=== PATIENT | male | born 1940 | race Caucasian/White ===

== ENCOUNTER → 2021-11-11 08:45 | Outpatient (BNVA) | payer MEDICARE, SELFPAY | PROVIDERS: Referring Provider Nurse Practitioner Family; Visit Provider Specialist | DX: G62.89 Other specified polyneuropathies (principal) | CPT/HCPCS: 95909; 95911 ==

== ENCOUNTER 2022-08-01 07:23 | Outpatient (CLI) | payer MEDICARE, SELFPAY ==
[2022-08-01 07:43] VITALS: BMI 27.1
--- NOTE | 2022-08-01 07:45 | NMCV_ITS ---
NM phillip perf SPECT r/s* [id number] Lexa Zapata Age: 82 Gender: M : 1940 Exam Date: 08/01/2022 08:20 Ordering Phys: Carl Crawley Technologist: RAO Cantrell Exam Location: [facility] Indications: ATHEROSCLEROTIC HEART DISEASE, EXERCISE INTOLLERENCE STRESS TEST Please see separate stress test report in [facility] for full findings IMAGE PROTOCOL Rest/Stress 1 Lexiscan Day Radiopharmaceutical Dose (mCi) Administration Site Administered by Rest: Tc-99m 10.8 IV RAO Benton Sestamibi Stress:Tc-99m 32.7 IV RAO Benton Sestamibi Rest: 01-Aug-2022 60 Discovery 630 Stress: 01-Aug-2022 30 Discovery 630 0.4mg Lexiscan. Images obtained in supine and prone position. SPECT RESULTS Technical Quality: Excellent Raw Data Analysis: Normal Image Corrections: No attenuation or motion correction applied Summed Stress Score: 4 Summed Rest Score: 5 Summed Difference Score: 2 PERFUSION FINDINGS Moderate area of minimally decreased tracer uptake was noted involving the basal and mid inferolateral, basal inferior and mid inferoseptal regions. Some reversibility was noted in the basal inferior and mid inferoseptal regions. FUNCTIONAL RESULTS (calculated via Gated SPECT) Stress Image LV EF (%): 76 Stress EDV (mL):88 TID: 0.79 Stress ESV (mL):21 FUNCTIONAL FINDINGS: Segmental wall motion analysis revealing no gross wall motion abnormalities IMPRESSIONS 1. Myocardial perfusion imaging revealing areas of persistent minimally decreased tracer uptake in the inferior, inferolateral and inferoseptal regions with some reversibility suggesting myocardial scarring in the distribution of the right coronary /left circumflex artery with a very small area of betzaida- infarct ischemia mostly in the right coronary artery territory. However because of the inconsistency, the reliability is questionable. 2. Normal LV ejection fraction 76%. 3. LV wall motion analysis revealing no gross wall motion abnormalities. 4. Normal LV volume No similar previous studies are available for comparison Dr Jimi Salinas MD [facility] (Electronically Signed) Final Date: 01 August 2022 16:37 S
--- NOTE | 2022-08-01 07:45 | ECG_ITS ---
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 Interpretive Statements NAME OF STUDY: LEXISCAN SESTAMIBI STRESS TEST INDICATION: CAD, PROCEDURE: At the baseline, the EKG revealed sinus rhythm with a second-degree type I AV block. The baseline heart was 47 bpm with a blood pressue of 125/78 mm of Hg Lexiscan was infused over a period of 20 seconds. A total of 0.4 milligrams of Lexiscan was infused. The stress phase was continued for a total of 5 minutes. Heart rate at the end of the stress phase was 52 bpm with a blood pressure 115/70 mm of Hg. The EKG at the peak infusion revealed no significant changes. Sestamibi was injected 20 seconds after the Lexiscan infusion. Heart rate at the end of the recovery phase was 58 bpm with a blood pressure of 132/75 mm of Hg. CONCLUSION: 1. No significant EKG changes with the LexiScan infusion 2. No LexiScan induced chest pain or cardiac arrhythmia 3. Normal blood pressure and heart rate response 4. Sestamibi/sestamibi perfusion scan pending; see separate report. Electronically Signed On 08-03-2022 23:16:14 CDT by Jimi Salinas M.D. [id number]
[2022-08-01] MEDS: regadenoson 0.4 Mg/5 ml Syringe IVP (08:55)
[2022-08-01 09:09] VITALS: BP 132/75; PULSE 59
== END 2022-08-01 07:24 | disposition home or self-care (01) ==
LOC: CDL 07:26
PROVIDERS: PCP Family Medicine; Visit Provider Family Medicine
DX: I25.118 Atherosclerotic heart disease of native coronary artery with other forms of angina pectoris (principal); R68.89 Other general symptoms and signs
CPT/HCPCS: 36415; 78452; 93017; 96374; A9500; J2785

== ENCOUNTER → 2022-08-12 13:10 | Outpatient (BNVA) | payer MEDICARE, SELFPAY | PROVIDERS: PCP Family Medicine; Referring Provider Registered Nurse; Visit Provider Orthopaedic Surgery | DX: S52.122A Displaced fracture of head of left radius, initial encounter for closed fracture (principal); W18.30XA Fall on same level, unspecified, initial encounter | CPT/HCPCS: 24650; 73080; 99213 ==

== ENCOUNTER → 2022-08-25 13:49 | Outpatient (BNVA) | payer MEDICARE, SELFPAY | PROVIDERS: PCP Family Medicine; Visit Provider Orthopaedic Surgery | DX: X58.XXXA Exposure to other specified factors, initial encounter (principal); S52.122A Displaced fracture of head of left radius, initial encounter for closed fracture | CPT/HCPCS: 73080; 99213 ==

== ENCOUNTER → 2022-09-03 12:50 | Outpatient (BNVA) | payer MEDICARE, SELFPAY | PROVIDERS: PCP Family Medicine; Visit Provider Internal Medicine | DX: R07.9 Chest pain, unspecified (principal); I25.118 Atherosclerotic heart disease of native coronary artery with other forms of angina pectoris; I10 Essential (primary) hypertension; R06.09 Other forms of dyspnea; R94.31 Abnormal electrocardiogram [ECG] [EKG] | CPT/HCPCS: 93005; 99204 ==

== ENCOUNTER → 2022-09-16 13:02 | Outpatient (BNVA) | payer MEDICARE, SELFPAY | PROVIDERS: PCP Family Medicine; Visit Provider Orthopaedic Surgery | DX: I25.118 Atherosclerotic heart disease of native coronary artery with other forms of angina pectoris (principal); I10 Essential (primary) hypertension; R06.09 Other forms of dyspnea; I44.30 Unspecified atrioventricular block; X58.XXXA Exposure to other specified factors, initial encounter; S52.122A Displaced fracture of head of left radius, initial encounter for closed fracture | CPT/HCPCS: 73080; 99024; 99214 ==

== ENCOUNTER 2022-09-19 14:50 | Outpatient (CLI) | payer MEDICARE, SELFPAY ==
--- NOTE | 2022-09-19 15:15 | USCV_ITS ---
Lexa Zapata Age: 82 Gender: M : 1940 Exam Date: 09/19/2022 15:46 Ordering Phys: Adin Morales M.D ([email or web address]) Technologist: CT Exam [place] [facility] [place] Indication: sob BP: 145 / 77 HR: 73 Rhythm: Sinus Technical Quality: Adequate MEASUREMENTS (Male / Female) Normal Values 2D ECHO LV Diastolic Diameter PLAX 4.3 cm 4.2 - 5.9 / 3.9 - 5.3 cm LV Systolic Diameter PLAX 3.2 cm LV Chamber Size 4.9 cm IVS Diastolic Thickness 1.1 cm 0.6 - 1.0 / 0.6 - 0.9 cm IVS Systolic Thickness 1.0 cm LVPW Diastolic Thickness 0.9 cm 0.6 - 1.0 / 0.6 - 0.9 cm LVPW Systolic Thickness 1.8 cm RV Chamber Size 4.4 cm LVOT Diameter 2.2 cm LV Ejection Fraction 2D Teich 49.8 % LV Ejection Fraction MOD 2C 50.0 % LV Ejection Fraction 2C AL 51.8 % LA Diameter 4.5 cm LA Width 4.3 cm LA Height 5.5 cm RA Width 3.8 cm RA Height 4.5 cm Aorta at Sinotubular Diameter 3.1 cm M-MODE Aortic Annulus Diameter 4.2 cm LA Ao Ratio MM 1.0 MV E Point Septal Separation 0.6 cm DOPPLER AV Peak Velocity 145.0 cm/s LVOT Peak Velocity 114.0 cm/s AV Area Cont Eq vti 4.0 cm squared AV Area Cont Eq pk 2.9 cm squared MV Peak Velocity 108.0 cm/s MV Area PHT 4.9 cm squared Mitral E to A Ratio 2.6 MV E' Velocity 60.5 cm/s Mitral E to MV E' Ratio 9.3 Mitral E to LV E' Lateral Ratio 8.3 Mitral E to LV E' Septal Ratio 10.6 Right Atrial Pressure 3.0 mmHg PV Peak Velocity 96.0 cm/s FINDINGS Left Ventricle Left ventricle is normal in size. LV systolic function is normal with EF of 50 to 55%. No regional wall motion abnormalities are seen. Right Ventricle Normal in size and function Right Atrium Normal in size Left Atrium Dilated Mitral Valve Mitral valve is thickened. Mild mitral regurgitation. Aortic Valve Aortic valve is thickened. No significant aortic stenosis. Mild aortic regurgitation. Tricuspid Valve Mild tricuspid regurgitation. Pulmonic Valve Not well-visualized. Pericardium Normal Aorta Normal in size IVC Appears to be normal CONCLUSIONS LV systolic function is normal with EF of 50 to 55%. Left atrium is dilated Mild mitral regurgitation Mild aortic regurgitation Mild tricuspid regurgitation No comparison studies are available. Adin Morales MD (Electronically Signed) Final Date: 27 September 2022 15:01 S
== END 2022-09-19 14:51 | disposition home or self-care (01) ==
LOC: RAD 14:57
PROVIDERS: PCP Family Medicine; Visit Provider Internal Medicine
DX: I08.3 Combined rheumatic disorders of mitral, aortic and tricuspid valves (principal); R06.02 Shortness of breath
CPT/HCPCS: 93306

== ENCOUNTER → 2022-10-10 11:03 | Outpatient (BNVA) | payer MEDICARE, SELFPAY | PROVIDERS: PCP Family Medicine; Visit Provider Nurse Practitioner Family | DX: I44.1 Atrioventricular block, second degree (principal); I44.30 Unspecified atrioventricular block | CPT/HCPCS: 80048; 85025; 85610; 99214 ==

== ENCOUNTER → 2022-11-06 12:55 | Outpatient (BNVA) | payer MEDICARE, SELFPAY | PROVIDERS: PCP Family Medicine; Visit Provider Internal Medicine | DX: I10 Essential (primary) hypertension (principal); R06.09 Other forms of dyspnea; I25.118 Atherosclerotic heart disease of native coronary artery with other forms of angina pectoris; I44.30 Unspecified atrioventricular block; Z79.01 Long term (current) use of anticoagulants | CPT/HCPCS: 99214 ==

== ENCOUNTER → 2022-11-26 10:43 | Outpatient (BNVA) | payer MEDICARE, SELFPAY | PROVIDERS: PCP Family Medicine; Visit Provider Internal Medicine Cardiovascular Disease | DX: R07.9 Chest pain, unspecified (principal); I44.1 Atrioventricular block, second degree; I48.91 Unspecified atrial fibrillation | CPT/HCPCS: 93005; 99215 ==

== ENCOUNTER 2022-11-28 14:14 | Observation (INO) | payer MEDICARE, SELFPAY ==
[2022-11-28 07:30] VITALS: BP 148/83; PULSE 66; RESP 16; TEMP 36.8; O2SAT 97; BMI 26.6
--- NOTE | 2022-11-28 08:11 | ECG_ITS ---
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 Measurements Intervals [place] Rate: 54 P: 0 IA: 0 QRS: -5 QRSD: 108 T: 13 QT: 431 QTc: 409 Interpretive Statements SINUS BRADYCARDIA WITH 2ND DEGREE AV BLOCK, 2:1 OR MOBITZ TYPE I POSSIBLE RIGHT VENTRICULAR CONDUCTION DELAY [RSR (QR) IN V1/V2] CRITICAL TEST RESULT Compared to ECG 11/26/2022 10:57:54 Atrial fibrillation no longer present Electronically Signed On 11-28-2022 18:20:42 CDT by Jimi Salinas M.D. [id number]
[2022-11-28 08:17] LABS: Basophils # 0.1 10^3/uL (0.0-0.1); Basophils % 0.9 %; Eosinophils # 0.3 10^3/uL (0.0-0.8); Hematocrit 46.7 % (37-53); Lymphocytes # 2.3 10^3/uL (0.8-4.8); Lymphocytes % 34.9 %; Mean Corpuscular HGB Conc 34.3 g/dL (30-55); Mean Corpuscular Hemoglobin 32.8 pg (27-33); Mean Corpuscular Volume 95.7 fl (82-101); Mean Platelet Volume 10.4 fL (7.4-10.4); Monocytes # 0.5 10^3/uL (0.2-0.9); Monocytes % 7.9 %; Neutrophils % 51.1 %; Nucleated Red Blood Cells % 0 %; Platelet Count 160 10^3/cmm (157-399); Red Blood Count 4.88 10^6/uL (3.85-5.65); Red Cell Distribution Width 12.8 % (12.1-15.1); White Blood Count 6.45 10^3/uL (3.29-11.43)
[2022-11-28 08:32] LABS: INR 0.95 (0.8-1.2)
--- NOTE | 2022-11-28 08:32 | XR_ITS ---
WS: [id number] EXAMINATION: XR chest 2V* [id number] REASON FOR EXAM: Pre op COMPARISON: None available. ORDER DATE: 11/28/2022 8:36 AM FINDINGS: The lungs are clear of infiltrate. There is atherosclerotic aortic change.. There are no significan t pleural effusions . No significant abnormalities are noted in the spine or remainder of the bony th orax. IMPRESSION: NO ACUTE PULMONARY CHANGE.
[2022-11-28 08:41] LABS: Anion Gap 12.3 (5-19); Blood Urea Nitrogen 19 mg/dL (8-23); Carbon Dioxide 29 mmol/L (22-29); Chloride 105 mmol/L (98-107); Glucose 95 mg/dL (65-115); Osmolality Calculated 296 mOsm/kg (285-295); Potassium 4.3 mmol/L (3.5-5.1); Sodium 142 mmol/L (136-145)
--- NOTE | 2022-11-28 09:47 | PC.NURSE ---
cpru nurse received pt from laboratory technician post [facility]. multiple stents placed. pt alert and oriented x3. tr band on right wrist with distal pulse palpable. no bruising or hematoma noted. pt educated on restrictions of right wrist, pt and family acknowledged understanding. pt and family will be re-educated throughout recovery. pt placed on monitor and will be monitored per protocol. plan is to recovery in cpru for approx 30 mins and then transfer to [facility].
--- NOTE | 2022-11-28 11:48 | W.PM.OPSUD ---
Surgery/Procedure H&P Update DATE OF PROCEDURE: November 28, 2022 DATE H&P PERFORMED: 11/26/22 H&P UPDATE INFORMATION: I have reviewed H&P completed within last 30 days, I have examined patient prior to procedure and No changes to prior documentation PREOP DIAGNOSIS: Symptomatic bradycardia; tachy / maria d arrhythmias PRIMARY INDICATION FOR PROCEDURE: Intermittent atrial fibrillation with rapid ventricular rate and high degree AV blocks PLANNED PROCEDURE: Operation Date: 11/28/22 08:30 Proposed Procedures p Pacemaker Insertion [id number],I44.1(Not Applicable) - Jimi Salinas MD. transvenous permanent dual-chamber pacemaker PATIENT REASSESSED PRIOR TO SEDATION, WITH NO CHANGE NOTED: Yes PHYSICAL EXAM: alert, oriented x 3, clear to auscultation bilaterally and regular rate & rhythm AIRWAY EVAL/ANESTHESIA PLAN: normal airway, see other exam findings, ASA III, Monitored Anesthesia, Local Anesthesia, Risks, benefits & alternatives of sedation and/or procedure discussed and Patient agrees to continue as planned
--- NOTE | 2022-11-28 13:54 | P.OP_ITS ---
Operative Report Date of procedure: November 28, 2022 Pre-op diagnosis: Preop Diagnosis Symptomatic bradycardia; tachy / maria d arrhythmias Procedure: LOCATION: Cardiac catheterization lab PREOPERATIVE DIAGNOSES: Intermittent high degree AV block, intermittent atrial fibrillation with rapid ventricular rate, tachy maria d arrhythmias. POSTOPERATIVE DIAGNOSES: Same. COMPLICATIONS: None. ESTIMATED BLOOD LOSS: Around 5 milliliters. BRIEF HISTORY: 82-year-old white male with a history of atherosclerotic heart disease, high blood pressure, dyslipidemia, presents with complaints of palpitation, shortness of breath, dizziness and chest discomfort. The event monitor showed evidence of atrial fibrillation with rapid ventricular rate with a heart rate in the 160s and episodes of second-degree heart block with a heart rate in the 30s. For further management of his condition, a permanent pacer implantation was requested. A dual chamber permanent pacemaker implantation was recommended for AV synchrony and symptom relief The procedure was explained to the patient and his family in detail with the risks and benefits. The risks of bleeding, hematoma, vascular injury, infection, pneumothorax, myocardial perforation and other concomitant complications were explained in detail, which the patient understood well and consented to proceed. PROCEDURE DESCRIPTION: The patient was brought to the Cardiac Catheterization Lab. The left and the right side of the neck and the subclavian area were cleaned and draped in a sterile fashion. 1% Xylocaine was used as the local an esthetic agent. Left subclavian venogram was performed by injecting 20 milliliters of Omnipaque through the left antecubital vein. A left subclavian venous access was obtained using a micropuncture needle system, under venographic guidance. . A two-inch long incision was made 2.0 centimeters below the midclavicular region. By sharp and blunt dissection, a pacemaker pocket was made. A second venous access was obtained with the double barelling. Over the first guidewire, a 7-Ethiopian venous sheath with dilator was advanced. The venous dilator and the guidewire were taken out. A screw-in ventricular lead was advanced through the venous sheath and was positioned towards the right ventricle. Under fluoroscopic guidance, the ventricular lead was positioned toward the right ventricular apex. Good pacing and sensing thresholds were obtained. The lead was secured to the endocardium by advancing the helix. The stability of the lead was tested by gentle twisting movements and also by asking the patient to take some deep breaths and cough. The venous sheath was peeled off, at this time. The lead was secured to the pectoralis fascia, by suturing with 1-0 Surgilon. Over the second guidewire, another 7-Ethiopian venous sheath with dilator was advanced. The dilator and the guidewire were taken out. Under fluoroscopic guidance, an atrial lead (Medtronic), was advanced and positioned toward the right atrium. The lead was positioned in the right atrial appendage. Good pacing and sensing thresholds were obtained. The lead was secured to the endocardium by advancing the helix. Stability of the lead was tested by gentle twisting movements and also by asking the patient to take some deep breaths and cough. The venous sheath was peeled off, at this time. The lead was secured to the pectoralis fascia by suturing with 0-Surgilon. The pacemaker pocket was copiously irrigated with vancomycin solution. Complete hemostasis was achieved. Sponge counts were confirmed. The leads were attached to a Medtronic generator. The leads were positioned behind the generator and the generator was attached to the pectoralis fascia by suturing with 0-Surgilon. The pocket was closed in layers. Skin was approximated using 4-0 Vicryl. IMPLANTED DEVICES: ATRIAL LEAD: Model number: 5076/52 Serial number: [id number] Make: Medtronic VENTRICULAR LEAD: Model number: 5076/58 Serial number: [id number] Make: Medtronic GENERATOR Brand: Singac XT DR MRI [place] Model number: W1 DR 01 Serial number: [id number] Make: Medtronic IMPLANTATION DATA: With the pacing system analyzer, the R wave sensing was 10.0 millivolts with a lead impedance of 950 and a pacing threshold was 0.4 volts at 0.4 milliseconds. In the atrium, the sensing was two-point millivolts with a nestor d impedance of 608 ohms and a pacing threshold was 0.4 volts at 0.4 milliseconds. Through the device, the R-wave sensing was 8.5 millivolts with a lead impedance of 912 and a pacing threshold was 0.5 volts at 0.4 milliseconds. The atrial sensing was 3.6 millivolts with a lead impedance of 587 ohms and a pacing threshold of 0.5 volts at 0.4 milliseconds. The pacemaker was set for /DDDR mode with upper rate of 130 and a lower rate of 60. A pressure dressing was applied over the pacemaker site. The patient was transferred to the Medical Floor in stable condition. A chest x-ray was ordered to confirm the lead position and also to rule out any pneumothorax.
[2022-11-28 14:00] VITALS: PULSE 73
[2022-11-28] MEDS: sodium chloride 0.9% 1,000 ML 75 ML IV (15:02)
[2022-11-28 16:00] VITALS: BP 125/64; PULSE 76; RESP 18; TEMP 36.4; O2SAT 94
[2022-11-28] MEDS: famotidine 20 mg Tablet 40 MG PO (17:22)
[2022-11-28 20:00] VITALS: BP 103/68; PULSE 73; RESP 16; TEMP 36.4; O2SAT 96
[2022-11-28] MEDS: ceFAZolin 2,000 MG in sodium chloride 0.9% (plus) 50 ML 100 MG IV (21:02)
[2022-11-28] MEDS: latanoprost 0.005% Op Soln 2.5 mL Btl 1 DROP EYE-BOTH (21:13)
[2022-11-28 22:00] VITALS: PULSE 79
[2022-11-28 23:53] VITALS: BP 130/80; PULSE 74; RESP 16; TEMP 36.5; O2SAT 96
[2022-11-29] MEDS: sodium chloride 0.9% 1,000 ML 75 ML IV (02:18)
[2022-11-29 04:00] VITALS: BP 152/71; PULSE 70; RESP 15; TEMP 36.6; O2SAT 95
[2022-11-29] MEDS: ceFAZolin 2,000 MG in sodium chloride 0.9% (plus) 50 ML 100 MG IV ×2 (04:21→11:21)
[2022-11-29 05:48] VITALS: PULSE 77
[2022-11-29 07:33] VITALS: BP 134/72; PULSE 70; RESP 18; TEMP 36.6; O2SAT 96
--- NOTE | 2022-11-29 08:40 | ECG_ITS ---
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 Measurements Intervals [place] Rate: 82 P: 67 IL: 178 QRS: -78 QRSD: 186 T: 85 QT: 451 QTc: 529 Interpretive Statements ELECTRONIC VENTRICULAR PACEMAKER Compared to ECG 11/28/2022 08:19:08 Sinus bradycardia no longer present Electronically Signed On 11-29-2022 14:45:16 CDT by Adin Morales M.D. [id number]
[2022-11-29] MEDS: meloxicam 7.5 mg tablet PO (09:04)
[2022-11-29] MEDS: famotidine 20 mg Tablet 40 MG PO (09:04)
[2022-11-29] MEDS: lisinopril 20 mg Tablet 40 MG PO (09:04)
--- NOTE | 2022-11-29 10:16 | P.DS_ITS ---
Discharge Providers Date of Admission: 11/28/22 14:14 Date of Discharge: November 29, 2022 Attending Provider at Admission: Jimi Salinas MD Attending Provider at Discharge: Adin Morales MD Primary Care Provider: Carl Crawley Reason for Visit Reason for Visit: I44.1 Brief History: 82-year-old man with past medical history of CAD, atrial fibrillation was found to have sick sinus syndrome. Plan for pacemaker placement. Hospital Course Hospital Course Patient underwent successful placement of dual chamber pacemaker with Dr. Salians yesterday. He is doing well. No complications. he will be discharged home with close cardiology follow-up Physical Exam Narrative: GENERAL: Patient is alert, awake and oriented x3. [] NECK: No jugular vein distension. [] HEENT: No cyanosis. No icterus. No pallor. [] HEART: Regular S1 and S2. No murmur, rub or gallop. [] LUNGS: Clear to auscultate bilaterally. [] CENTRAL NERVOUS SYSTEM: Grossly nonfocal. 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 OFFICER request for service Routine Exams 11/28/22 07:30 Completed XR chest 2V* [id number] Routine Exams 11/28/22 08:32 Completed Laboratory Results WBC 6.45 10^3/uL (3.29-11.43) 11/28/22 08:00 RBC 4.88 10^6/uL (3.85-5.65) 11/28/22 08:00 Hgb 16.00 g/dL (11.27-16.99) 11/28/22 08:00 Hct 46.7 % (37-53) 11/28/22 08:00 MCV 95.7 fl (82-101) 11/28/22 08:00 MCH 32.8 pg (27-33) 11/28/22 08:00 MCHC 34.3 g/dL (30-55) 11/28/22 08:00 RDW 12.8 % (12.1-15.1) 11/28/22 08:00 Plt Count 160 10^3/cmm (157-399) 11/28/22 08:00 MPV 10.4 fL (7.4-10.4) 11/28/22 08:00 Neut % (Auto) 51.1 % 11/28/22 08:00 Lymph % (Auto) 34.9 % 11/28/22 08:00 [place] % (Auto) 7.9 % 11/28/22 08:00 Eos % (Auto) 5.0 % 11/28/22 08:00 Baso % (Auto) 0.9 % 11/28/22 08:00 Neut # (Auto) 3.30 10^3/uL (1.8-7.7) 11/28/22 08:00 Lymph # (Auto) 2.3 10^3/uL (0.8-4.8) 11/28/22 08:00 [place] # (Auto) 0.5 10^3/uL (0.2-0.9) 11/28/22 08:00 Eos # (Auto) 0.3 10^3/uL (0.0-0.8) 11/28/22 08:00 Baso # (Auto) 0.1 10^3/uL (0.0-0.1) 11/28/22 08:00 Nucleated RBC % (auto) 0 % 11/28/22 08:00 Nucleated RBCs # 0.0 /100WBC 11/28/22 08:00 PT 13.00 SECONDS (12.1-14.9) 11/28/22 08:00 INR 0.95 (0.8-1.2) 11/28/22 08:00 Sodium 142 mmol/L (136-145) 11/28/22 08:00 Potassium 4.3 mmol/L (3.5-5.1) 11/28/22 08:00 Chloride 105 mmol/L (98-107) 11/28/22 08:00 Carbon Dioxide 29 mmol/L (22-29) 11/28/22 08:00 Anion Gap 12.3 (5-19) 11/28/22 08:00 BUN 19 mg/dL (8-23) 11/28/22 08:00 Creatinine 1.0 mg/dL (0.7-1.2) 11/28/22 08:00 GFR Calculation Not Reportable 11/28/22 08:00 Glucose 95 mg/dL (65-115) 11/28/22 08:00 Calculated Osmolality 296 mOsm/kg (285-295) H 11/28/22 08:00 Calcium 9.0 mg/dL (8.5-10.5) 11/28/22 08:00 Vitals Last Vital Signs Temp 97.8 F 11/29/22 07:33 Pulse 70 11/29/22 07:33 Resp 18 11/29/22 07:33 BP 134/72 11/29/22 07:33 Pulse Ox 96 11/29/22 07:33 O2 Del Method Room Air 11/29/22 04:00 Discharge Plan Discharge Patient Disposition: Home Condition: Stable Prescriptions: Continued famotidine 40 mg tablet 40 mg PO BID meloxicam 7.5 mg tablet 7.5 mg PO DAILY amitriptyline 10 mg tablet 10 mg PO DAILY latanoprost 0.005 % drops 1 drp ophthalmic (eye) DAILY apixaban 5 mg tablet 5 mg PO BID Qty: 180 3RF lisinopril 40 mg tablet 40 mg PO DAILY Qty: 90 3RF Discontinued aspirin 325 mg tablet 325 mg PO DAILY Discharge Orders: Discharge Order (Routine); Ordered 11/29/22 Ordered By: Adin Morales Referrals: Carl Crawley [Primary Care Provider] - 4-7 days (Please call Thursday and schedule an appointment with Dr. Crawley. ) Mar Boateng FNP [Nurse Practitioner] - 1 week (We have notified your physician's clinic of the need for a follow-up appointment to be scheduled. If you have not heard from them within the next 2 business days, please call them directly. You may also reach out to our team manager at [phone] and she can assist you.) Discharge Diet: Low Salt Discharge Activity: Limit activity as instructed Patient Instructions: Cephalexin (By mouth), Pacemaker (DC), Opioid Safety, Post Pacemaker - Brad Discharge Attestations Time Spent in Discharge Care*: less than 30 min Quality Metrics Clinical Quality Measures [ No reported AMI, CVA or VTE this stay] Coding Level of Care Code Acute Code for Chg Fwd Diagnoses
[2022-11-29 11:22] VITALS: BP 142/76; PULSE 76; RESP 17; TEMP 36.5; O2SAT 96
[2022-11-29 13:09] VITALS: BP 142/76; PULSE 76; RESP 17; TEMP 36.5; O2SAT 96
== END 2022-11-29 12:45 | disposition home or self-care (01) ==
LOC: MEDSURG 14:16
PROVIDERS: Admitting Provider Internal Medicine Cardiovascular Disease; PCP Family Medicine; Visit Provider Internal Medicine Cardiovascular Disease
DX: I25.118 Atherosclerotic heart disease of native coronary artery with other forms of angina pectoris (principal); I44.1 Atrioventricular block, second degree; I49.5 Sick sinus syndrome; I48.91 Unspecified atrial fibrillation; I10 Essential (primary) hypertension; Z79.82 Long term (current) use of aspirin
CPT/HCPCS: 33208; 36415; 71046; 80048; 85025; 85610; 93005; 96361; 96365; 96367; 99152; 99153; A4216; C1769; C1779; C1786; C1894; C1898; G0378; J0690; J2250; J3010; J3370; J7030; J7050; Q9967

== ENCOUNTER → 2022-12-25 12:46 | Outpatient (BNVA) | payer MEDICARE, SELFPAY | PROVIDERS: PCP Family Medicine; Visit Provider Nurse Practitioner Family | DX: Z95.0 Presence of cardiac pacemaker (principal) | CPT/HCPCS: 99024; 99213 ==

== ENCOUNTER → 2023-05-07 14:26 | Outpatient (BNVA) | payer MEDICARE, SELFPAY | PROVIDERS: PCP Family Medicine; Visit Provider Internal Medicine | DX: I10 Essential (primary) hypertension (principal); R06.09 Other forms of dyspnea; I25.118 Atherosclerotic heart disease of native coronary artery with other forms of angina pectoris; I44.30 Unspecified atrioventricular block | CPT/HCPCS: 99214 ==

== ENCOUNTER → 2023-05-11 15:14 | Outpatient (BNVA) | payer MEDICARE, SELFPAY | PROVIDERS: PCP Family Medicine; Visit Provider Internal Medicine | DX: Z45.010 Encounter for checking and testing of cardiac pacemaker pulse generator [battery] (principal) | CPT/HCPCS: 93296 ==

== ENCOUNTER → 2023-11-19 13:39 | Outpatient (BNVA) | payer MEDICARE, SELFPAY | PROVIDERS: PCP Family Medicine; Visit Provider Internal Medicine | DX: I10 Essential (primary) hypertension (principal); R06.09 Other forms of dyspnea; I25.118 Atherosclerotic heart disease of native coronary artery with other forms of angina pectoris; I44.30 Unspecified atrioventricular block; Z95.0 Presence of cardiac pacemaker | CPT/HCPCS: 99214 ==

== ENCOUNTER → 2024-05-26 09:19 | Outpatient (BNVA) | payer MEDICARE, SELFPAY | PROVIDERS: PCP Family Medicine; Visit Provider Internal Medicine | DX: Z45.018 Encounter for adjustment and management of other part of cardiac pacemaker (principal) | CPT/HCPCS: 93296 ==

== ENCOUNTER → 2024-06-01 10:11 | Outpatient (BNVA) | payer MEDICARE, SELFPAY | PROVIDERS: PCP Family Medicine; Visit Provider Internal Medicine | DX: I10 Essential (primary) hypertension (principal); R06.09 Other forms of dyspnea; I25.118 Atherosclerotic heart disease of native coronary artery with other forms of angina pectoris; I44.30 Unspecified atrioventricular block | CPT/HCPCS: 99214 ==

== ENCOUNTER → 2024-08-24 12:47 | Outpatient (BNVA) | payer MEDICARE, SELFPAY | PROVIDERS: PCP Family Medicine; Visit Provider Internal Medicine | DX: Z45.018 Encounter for adjustment and management of other part of cardiac pacemaker (principal) | CPT/HCPCS: 93296 ==

== ENCOUNTER → 2024-12-01 14:52 | Outpatient (BNVA) | payer MEDICARE, SELFPAY | PROVIDERS: PCP Family Medicine; Visit Provider Internal Medicine | DX: I25.10 Atherosclerotic heart disease of native coronary artery without angina pectoris (principal); I10 Essential (primary) hypertension; I44.30 Unspecified atrioventricular block; I48.91 Unspecified atrial fibrillation; Z79.01 Long term (current) use of anticoagulants; Z79.82 Long term (current) use of aspirin; Z95.0 Presence of cardiac pacemaker; Z87.891 Personal history of nicotine dependence | CPT/HCPCS: 99214 ==